=== PATIENT | female | born 1960 | race Caucasian/White ===

== ENCOUNTER 2024-12-12 11:33 | Emergency (ER) | payer MEDICARE, MEDICAID ==
[~2024-12-12] VITALS: Ht 147.3 cm; Wt 69.7 kg
[~2024-12-12 11:33] MED LIST: PRED20TA PO
[2024-12-12] MEDS ORDERED: ketorolac trometh 15mg/ml vial 15 MG/ML ML IM ONE (12:55)
[2024-12-12] MEDS: ketorolac trometh 30MG/ML vial 30 MG/ML VIAL IM ONE (13:25)
[2024-12-12] MEDS ORDERED: NAPR-56 PO (13:25)
[2024-12-12 13:37] VITALS: BP 142/89; PULSE 70; RESP 16; TEMP 97.4; O2SAT 99
== END 2024-12-12 13:38 | disposition home or self-care (01) ==
LOC: ER 11:34
DX: M16.0 Bilateral primary osteoarthritis of hip (principal); J45.909 Unspecified asthma, uncomplicated; Z88.1 Allergy status to other antibiotic agents; Z79.899 Other long term (current) drug therapy
CPT/HCPCS: 73502; 96372; 99283; J1885

== ENCOUNTER 2025-01-16 12:47 | Emergency (ER) | payer MEDICARE, MEDICAID ==
[~2025-01-16] VITALS: Ht 147.3 cm; Wt 77.0 kg
[~2025-01-16 12:47] MED LIST changes: +BUDE10.2 INH; +HYDR-3686 PO; +IPRA4AER IH; +PANT-47 PO; +QUET400T13 PO
[2025-01-16 13:40] LABS: BASOPHILS % (AUTO) 0.1 % (0-1); EOSINOPHILS % (AUTO) 0 % (0-6); HEMATOCRIT 34.6 % (35.0-45.0); LYMPHOCYTES # (AUTO) 0.8 X10'3 (1.1-4.8); LYMPHOCYTES % (AUTO) 6.8 % (21-51); MEAN CORPUSCULAR HEMOGLOBIN 26.3 PG (27.0-31.0); MEAN CORPUSCULAR HGB CONC 31.8 g/dL (33.0-36.5); MEAN CORPUSCULAR VOLUME 82.9 FL (78-98); MEAN PLATELET VOLUME 7.3 FL (7.4-10.4); MONOCYTES # (AUTO) 0.2 X10'3 (0-0.9); MONOCYTES % (AUTO) 2.2 % (2-12); NEUTROPHILS # (AUTO) 10.2 X10'3 (1.8-7.7); NEUTROPHILS % (AUTO) 90.9 % (42-75); PLATELET COUNT 286 X10'3 (140-440); RED BLOOD COUNT 4.18 X10'6 (4.20-5.60); RED CELL DISTRIBUTION WIDTH 16.2 % (11.5-14.5); WHITE BLOOD COUNT 11.2 X10'3 (4.5-11.0)
[2025-01-16 13:49] LABS: ALANINE AMINOTRANSFERASE 32 U/L (12-78); ALBUMIN 3.4 G/DL (3.4-5.0); ALKALINE PHOSPHATASE 106 IU/L (46-116); ANION GAP 8 (8-16); ASPARTATE AMINO TRANSFERASE 17 U/L (10-37); BILIRUBIN,TOTAL 0.3 MG/DL (0.1-1.0); BLOOD UREA NITROGEN 14 MG/DL (7-18); BUN/CREATININE RATIO 20.6 (10.0-20.0); CALCIUM 8.3 MG/DL (8.5-10.1); CHLORIDE 104 MMOL/L (99-107); CREATININE 0.68 MG/DL (0.40-0.90); GLUCOSE 132 MG/DL (70-104); POTASSIUM 3.9 MMOL/L (3.5-5.1); SODIUM 138 MMOL/L (135-145); TOTAL CARBON DIOXIDE 25.6 MMOL/L (24-32); TOTAL PROTEIN 6.8 G/DL (6.4-8.2); eCRCL 54 ML/MIN; eGFR 87 ML/MIN
[2025-01-16 13:54] LABS: PRO BRAIN NATRIURETIC PEPTIDE 134 PG/ML (0-125)
[2025-01-16 15:33] LABS: URINE AMPHETAMINE SCREEN NEGATIVE (Neg); URINE BARBITUATE SCREEN NEGATIVE (Neg); URINE BENZODIAZEPINES SCREEN NEGATIVE (Neg); URINE CANNABINOID SCREEN NEGATIVE (Neg); URINE COCAINE SCREEN NEGATIVE (Neg); URINE METHADONE SCREEN NEGATIVE (Neg); URINE OPIATE SCREEN NEGATIVE (Neg); URINE PHENCYCLIDINE SCREEN NEGATIVE (Neg)
[2025-01-16 16:00] VITALS: TEMP 98.2
[2025-01-16] MEDS ORDERED: ATR0.5NEB NEB (16:13)
[2025-01-16 16:30] VITALS: BP 112/65; PULSE 74; RESP 16; O2SAT 98
== END 2025-01-16 16:39 | disposition home or self-care (01) ==
LOC: ER 12:48
DX: J44.1 Chronic obstructive pulmonary disease with (acute) exacerbation (principal); R06.03 Acute respiratory distress; Z88.8 Allergy status to other drugs, medicaments and biological substances; Z90.710 Acquired absence of both cervix and uterus
CPT/HCPCS: 36415; 71045; 80053; 80305; 83880; 84484; 85025; 93005; 99285

== ENCOUNTER 2025-02-15 10:43 | Emergency (ER) | payer MEDICARE, MEDICAID ==
[~2025-02-15] VITALS: Ht 147.3 cm; Wt 70.5 kg
[~2025-02-15 10:43] MED LIST changes: +ALBU2.5V7 NEB; +ATR0.5NEB NEB; +AZIT500T9 PO; +BENZ200C72 PO; +BUDE0.5A3 IH; -BUDE10.2 INH; +BUDE10.26 INH; +BUSP10TA11 PO; +IPRA3AMP9 NEB; +MONT-40 PO; -PANT-47 PO; +PANT40TA54 PO; -PRED20TA PO; +PREDNISONE 20 MG PO
[2025-02-15 10:44] VITALS: BP 142/82; TEMP 97.2
--- NOTE | 2025-02-15 10:53 | ELECTROCARDIOGRAPH REPORT ---
[facility] Test Date: 2025-02-15 Test Time: 10:52:23 Pat Name: MYA PANCHAL Department: EMERGENCY ROOM Room: Gender: F [employer] Machine Operator: SHEILA : 1960 Requested By: RAVINDER DOMÍNGUEZ Order Number: [id number] Reading MD: Dr. Jared Mclean Measurements Intervals [place] Rate: 100 P: 27 SD: 193 QRS: 8 QRSD: 83 T: 65 QT: 343 QTc: 443 Interpretive Statements Sinus tachycardia Abnormal R-wave progression, early transition Inferior infarct, acute (RCA) Lateral leads are also involved Probable RV involvement, suggest recording right precordial leads Baseline wander in lead(s) II,III,aVL,aVF,V3,V4,V5 Electronically Signed On 02-17-2025 19:03:[address] Jared Mclean Please click the below link to view image of tracing.
--- NOTE | 2025-02-15 11:39 | RADIOLOGY REPORT ---
EXAM: XR Right Hip With Pelvis When Performed, 2 or 3 Views CLINICAL INDICATION: HIP PAIN TECHNIQUE: Two or three views of the right hip with pelvis when performed. COMPARISON: DI HIP UNILATERAL 2 VIEWS on DOS: 12/12/24 FINDINGS: BONES/JOINTS: Unremarkable. No acute fracture. No dislocation. SOFT TISSUES: Unremarkable. OTHER FINDINGS: . None. IMPRESSION: No acute findings in the right hip.
[2025-02-15] MEDS: triamcinolone acetonide 40mg/ml inj IM ONE (13:38)
[2025-02-15] MEDS ORDERED: METH4TAB81 PO (13:44)
--- NOTE | 2025-02-15 13:44 | Physician Documentation ---
History of Present Illness ~ Chief Complaint: Hip pain Stated Complaint: R HIP PAIN, SOB Time Seen by MD: 11:33 OK to notify your PCP?: Yes Primary Medical Doctor: DOES NOT HAVE Source: patient Mode of Arrival: POV Exam Limitations: no limitations HPI 65 y/o female with right buttock pain x months getting progressively worse. No recent falls or injurys. No urinary retention, urinary incontinence or bowel incontinence. No clumsiness of LE. States also has SOB but states already being treated for this and states does not need treatment. Medication Reconciliation Allergies: Coded Allergies: Tetracyclines (Verified Allergy, Unknown, 01/16/25) Scheduled Azithromycin (Azithromycin), 1 TAB PO DAILY Budesonide (Budesonide), 0.5 MG IH BID Budesonide/Formoterol Fumarate (Budesonide-Formoterol 160-4.5), 2 PUFFS INH Q12H, (Reported) Buspirone Hcl* (Buspar*), 1 TAB PO BID, (Reported) Hydroxyzine Hcl* (Atarax*), 1 TAB PO Q12H, (Reported) Ipratropium [place] Neb* (Atrovent Neb*), 1 VIAL NEB Q6H, (Reported) Methylprednisolone (Medrol Dosepak), 0 PO UD Montelukast Sodium (Montelukast Sodium), 10 MG PO DAILY Quetiapine Fumarate (Quetiapine Fumarate), 1 TAB PO HS, (Reported) [prednisone 20mg], 2 TAB PO DAILY, (Reported) Scheduled PRN Albuterol Sulfate (Albuterol Sulfate), 2.5 MG NEB Q1H PRN for SOB or wheezing Benzonatate (Benzonatate), 1 CAP PO Q8H PRN for cough Ipratropium/Albuterol Sulfate (Combivent Respimat Inhal [place]), 2 PUFFS IH Q4H PRN for SOB or wheezing, (Reported) Ipratropium/Albuterol Sulfate (IPRAT-ALBUT 0.5-3(2.5) MG/3 ML nebule), 3 ML NEB Q4H PRN for SOB or wheezing Miscellaneous Medications Pantoprazole Sodium (Pantoprazole Sodium), 40 MG PO, (Reported) Past Medical History Past Medical History: Asthma, COPD, Psychosis Past Surgical History: hysterectomy Review of Systems All Other Systems at this time: Reviewed and Negative Physical Exam Physical Exam Vital Signs: Temperature: 97.2, Source: Temporal, Heart Rate: 99, Respiratory Rate: 15, BP: 142/82, Pulse Oximetry: 97, Weight: 70.500 Physical Exam GENERAL: Alert, no acute distress. HEENT: NCAT, EOMI, PERRL, normal oropharynx, moist oral mucosa. NECK: Supple, trachea midline. CARDIAC: Regular rate and rhythm, no murmurs, rubs, or gallops. Equal distal pulses. No lower extremity edema, cap refill less than 2 seconds. RESPIRATORY: Equal breath sounds, clear to auscultation bilaterally, no respiratory distress. GASTROINTESTINAL: Non distended, soft, nontender, No guarding or rebound. MUSCULOSKELETAL: TTP OVER RIGHT SI JOINT AND RIGHT PARASPINAL MUSCLES LSPINE, NO MIDLINE TTP. Normal range of motion, nontender, no swelling. Normal gait. NEUROLOGICAL: Awake, alert, and oriented x 3. SKIN: Warm/dry, no pallor, no rash. PSYCH: Alert and appropriate. Affect congruent with mood. Speech is clear. Good eye contact. Progress Results/Orders Results/Orders Completed Orders - LAN LEBRON Triamcinolone Acet 40mg/Ml Inj (Kenalog- (02/15/25 13:20) Medications Received in ER Medications (Trade) Dose Ordered Sig/Bossman Route PRN Reason Start Time Stop Time Status Last Admin Dose Admin (Kenalog-40 inj) 60 mg ONCE ONCE IM 02/15/25 13:20 02/15/25 13:21 DC 02/15/25 13:38 60 MG Vital Signs 02/15/25 02/15/25 10:44 13:55 Temp 97.2 Pulse 99 80 Resp 15 17 B/P (MAP) 142/82 Pulse Ox 97 98 Medical Decision Making Differential Dx:Considerations: Include: AAA, Aortic dissection, , Appendicitis, Bowel obstruction, Cholelithiasis, Cholangitis, DJD, Ectopic , Fracture, Hepatitis, HNP, Musculoskeletal pain, Pancreatitis, Pyelonephritis, Strain, Urinary obstruction, Urolithiasis, Ovarian torsion, Other Differential Diagnosis NO EVIDENCE OF CAUDA EQUINA, PAIN REPRODUCIBLE OVER SI JOINT AND PARASPINAL MUSCLES Departure Time of Disposition: 13:44 Disposition: 01 HOME / SELF CARE / HOMELESS Impression: Primary Impression: Back pain Qualified Codes: M54.50 - Low back pain, unspecified Condition: Stable Discharge Instructions: Acute Back Pain, Adult Additional Instructions: F/U WITH PCP ABOUT YOUR RIGHT BUTTOCK AND RIGHT SI JOINT PAIN WE TREATED YOU WITH STEROID INJECTION Referrals: NO PRIMARY CARE PROVIDER (PCP) Prescriptions Methylprednisolone (Medrol Dosepak) 4 Mg Tab.ds.pk 0 PO UD, #21 TAB 0 Refills take 6 Pills Day 1, 5 Pills Day 2, 4 Pills Day 3, 3 Pills Day 4, 2 Pills Day 5 and 1 pill Day 6 Prov: LAN LEBRON 02/15/25 Education Educated: Patient Educated regarding: diagnosis, treatment, need for follow up Signature Scribe Signature: X Attestation: LAN JOHN Feb 15, 2025 13:44
[2025-02-15 13:55] VITALS: PULSE 80; RESP 17; O2SAT 98
== END 2025-02-15 14:00 | disposition home or self-care (01) ==
LOC: ER 10:43
DX: M54.9 Dorsalgia, unspecified (principal); M25.551 Pain in right hip; R06.02 Shortness of breath; J44.9 Chronic obstructive pulmonary disease, unspecified; Z88.8 Allergy status to other drugs, medicaments and biological substances; Z90.710 Acquired absence of both cervix and uterus
CPT/HCPCS: 73502; 93005; 96372; 99283; J3301